=== PATIENT | male | born 2000 | race African-American/Black ===

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

== ENCOUNTER 2018-06-12 11:52 | Emergency (ER) | payer SELFPAY ==
--- NOTE | 2018-06-12 14:34 | Emergency Department Report ---
ED General Adult HPI - General Chief complaint: Upper Respiratory Infection Stated complaint: COUGH Time Seen by Provider: 06/12/18 13:49 Source: patient Mode of arrival: Ambulatory Limitations: No Limitations - History of Present Illness Initial comments: Patient presents to emergency problems to complain of a productive cough for one week. Patient is chest pain, shortness breath, or abdominal pain but does complain of muscle aches. -: Sudden Severity scale (0 -10): 2 Consistency: constant Improves with: none Worsens with: none Associated Symptoms: denies other symptoms Treatments Prior to Arrival: none - Related Data Previous Rx's Medication Instructions Recorded Last Taken Type Albuterol Sulfate [Albuterol 0.63% 0.63 mg IH Q4HR PRN #30 ml 06/12/18 Unknown Rx NEBS] Azithromycin [Zithromax Z-ELIE] 250 mg PO DAILY #6 tablet 06/12/18 Unknown Rx Benzonatate [Tessalon Perles] 100 mg PO Q8HR PRN #20 capsule 06/12/18 Unknown Rx Ibuprofen [Motrin] 800 mg PO Q8HR PRN #30 tablet 06/12/18 Unknown Rx Allergies Allergy/AdvReac Type Severity Reaction Status Date / Time morphine Allergy Unknown Verified 10/24/17 19:40 ED Review of Systems ROS: Stated complaint: COUGH Other details as noted in HPI Comment: All other systems reviewed and negative Constitutional: denies: chills, fever Eyes: denies: eye pain, eye discharge, vision change ENT: denies: ear pain, throat pain Respiratory: denies: cough, shortness of breath, wheezing Cardiovascular: denies: chest pain, palpitations Endocrine: no symptoms reported Gastrointestinal: denies: abdominal pain, nausea, diarrhea Genitourinary: denies: urgency, dysuria Musculoskeletal: denies: back pain, joint swelling, arthralgia Skin: denies: rash, lesions Neurological: denies: headache, weakness, paresthesias Psychiatric: denies: anxiety, depression Hematological/Lymphatic: denies: easy bleeding, easy bruising ED Past Medical Hx - Past Medical History Previous Medical History?: Yes Hx Hypertension: No Hx CVA: No Hx Heart Attack/AMI: No Hx Congestive Heart Failure: No Hx Diabetes: No Hx Deep Vein Thrombosis: No Hx Pulmonary Embolism: No Hx GERD: No Hx Liver Disease: No Hx Renal Disease: No Hx of Cancer: No Hx Sickle Cell Disease: No Hx Arthritis: No Hx Headaches / Migraines: No Hx Seizures: No Hx Kidney Stones: No Hx Psychiatric Treatment: No Hx Asthma: No Hx COPD: No Hx Tuberculosis: No Hx Dementia: No Hx HIV: No Additional medical history: murmur,leaking valve - Surgical History Past Surgical History?: Yes Hx Coronary Stent: No Hx Open Heart Surgery: No Hx Pacemaker: No Hx Internal Defibrillator: No Hx Cholecystectomy: No Hx Appendectomy: No Hx Breast Surgery: No Additional Surgical History: heart surgery - Social History Smoking Status: Never Smoker Substance Use Type: None - Medications Home Medications: Home Medications Medication Instructions Recorded Confirmed Last Taken Type Albuterol Sulfate [Albuterol 0.63% 0.63 mg IH Q4HR PRN #30 ml 06/12/18 Unknown Rx NEBS] Azithromycin [Zithromax Z-ELIE] 250 mg PO DAILY #6 tablet 06/12/18 Unknown Rx Benzonatate [Tessalon Perles] 100 mg PO Q8HR PRN #20 capsule 06/12/18 Unknown Rx Ibuprofen [Motrin] 800 mg PO Q8HR PRN #30 tablet 06/12/18 Unknown Rx ED Physical Exam - General Limitations: No Limitations General appearance: alert, in no apparent distress - Head Head exam: Present: atraumatic, normocephalic - Eye Eye exam: Present: normal appearance, PERRL, EOMI - ENT ENT exam: Present: mucous membranes moist - Neck Neck exam: Present: normal inspection - Respiratory Respiratory exam: Present: normal lung sounds bilaterally, wheezes. Absent: respiratory distress, rales - Cardiovascular Cardiovascular Exam: Present: regular rate, normal rhythm. Absent: systolic murmur, diastolic murmur, rubs, gallop - GI/Abdominal GI/Abdominal exam: Present: soft, normal bowel sounds. Absent: distended, tenderness - Rectal Rectal exam: Present: deferred - Extremities Exam Extremities exam: Present: normal inspection - Back Exam Back exam: Present: normal inspection - Neurological Exam Neurological exam: Present: alert, oriented X3, CN II-XII intact. Absent: motor sensory deficit - Psychiatric Psychiatric exam: Present: normal affect, normal mood - Skin Skin exam: Present: warm, dry, intact, normal color. Absent: rash ED Medical Decision Making - Medical Decision Making Discussed plan of care with patient Critical care attestation.: If time is entered above; I have spent that time in minutes in the direct care of this critically ill patient, excluding procedure time. ED Disposition Clinical Impression: Bronchitis Disposition: DC-01 TO HOME OR SELFCARE Is pt being admited?: No Does the pt Need Aspirin: No Condition: Stable Instructions: Acute Bronchitis (ED) Additional Instructions: return if worse Referrals: TYLER ROJAS MD [Primary Care Provider] - 3-5 Days [facility] [Provider Group] - 3-5 Days [facility] [Provider Group] - 3-5 Days Time of Disposition: 14:33
== END 2018-06-12 14:39 | disposition home or self-care (01) ==
LOC: ED 11:52
DX: J40 Bronchitis, not specified as acute or chronic (principal)
CPT/HCPCS: 99281

== ENCOUNTER 2019-12-25 13:05 | Emergency (ER) | payer MEDICAID ==
[2019-12-25] MEDS ORDERED: dexAMETHasone 20 MG/5 ML VIAL IM ONE (16:22)
[2019-12-25] MEDS ORDERED: ACETAMINOPHEN 325 MG TAB PO ONE (16:22)
--- NOTE | 2019-12-25 16:22 | Event Note ---
ED Screening Note Date of service: 12/25/19 Time: 16:17 ED Screening Note: 19-year-old male who presents the ED complaining of worsening coughing for the past week. Patient also complaining of neck pain and fatigue Mom states patient states that her mom had the coronavirus 2 weeks ago. States that his brother had pneumonia rechecking sats, satting at 92,temperature 99 No use of respiratory muscle This initial assessment/diagnostic orders/clinical plan/treatment(s) is/are subject to change based on patients health status, clinical progression and re- assessment by fellow clinical providers in the ED. Further treatment and workup at subsequent clinical providers discretion. Patient/guardian urged not to elope from the ED as their condition may be serious if not clinically assessed and managed. Initial orders include: Chest x-ray ordered, Steroids ordered, DuoNeb ordered, tylenol
[2019-12-25] MEDS ORDERED: ALBUTEROL 2.5 MG/3 ML NEBU IH ONE (16:23)
--- NOTE | 2019-12-25 17:07 | XRay Report ---
CHEST 1 VIEW INDICATION / CLINICAL INFORMATION: sob. COMPARISON: None available. FINDINGS: SUPPORT DEVICES: None. HEART / MEDIASTINUM: Changes of median sternotomy LUNGS / PLEURA: No significant pulmonary or pleural abnormality.. No pneumothorax. ADDITIONAL FINDINGS: No significant additional findings. IMPRESSION: 1. No acute findings. Signer Name: Jose Mercado MD Signed: 12/25/2019 5:03 PM Workstation Name: [id number]
--- NOTE | 2019-12-25 18:29 | Emergency Department Report ---
Minor Respiratory - HPI Chief Complaint: Upper Respiratory Infection Stated Complaint: COUGHING Time Seen by Provider: 12/25/19 18:28 Duration: 5 Days Severity: mild Minor Respiratory: Yes Cough, No Rhinorrhea, No Sore Throat, No Able to Tolerate Fluids, No Ear Pain, No Sick Contacts, No Hemoptysis, No Chest Pain, No Shortness of Breath, No Fever Other History: 19-year-old male presents to the emergency room for complaining of cough x1 week. He also reports nausea no vomiting. Denies any fever chills no shortness of breath. Patient states that his mom tested positive for COVID. Patient has not tested. Patient does report a history of cardiac surgery had a leaky valve and a has a heart murmur. He reports he had heart surgery but does not know what the procedure was. Patient does not smoke cigarettes. ED Review of Systems ROS: Stated complaint: COUGHING Other details as noted in HPI ED Past Medical Hx - Past Medical History Hx Hypertension: No Hx CVA: No Hx Heart Attack/AMI: No Hx Congestive Heart Failure: No Hx Diabetes: No Hx Deep Vein Thrombosis: No Hx Pulmonary Embolism: No Hx GERD: No Hx Liver Disease: No Hx Renal Disease: No Hx Sickle Cell Disease: No Hx Arthritis: No Hx Headaches / Migraines: No Hx Seizures: No Hx Kidney Stones: No Hx Psychiatric Treatment: No Hx Asthma: No Hx COPD: No Hx Tuberculosis: No Hx Dementia: No Hx HIV: No Additional medical history: murmur,leaking valve - Surgical History Hx Coronary Stent: No Hx Open Heart Surgery: No Hx Pacemaker: No Hx Internal Defibrillator: No Hx Cholecystectomy: No Hx Appendectomy: No Hx Breast Surgery: No Additional Surgical History: heart surgery - Social History Smoking Status: Never Smoker Substance Use Type: None - Medications Home Medications: Home Medications Medication Instructions Recorded Confirmed Last Taken Type Albuterol Sulfate [Albuterol 0.63% 0.63 mg IH Q4HR PRN #30 ml 06/12/18 Unknown Rx NEBS] Azithromycin [Zithromax Z-ELIE] 250 mg PO DAILY #6 tablet 06/12/18 Unknown Rx Benzonatate [Tessalon Perles] 100 mg PO Q8HR PRN #20 capsule 06/12/18 Unknown Rx Ibuprofen [Motrin] 800 mg PO Q8HR PRN #30 tablet 06/12/18 Unknown Rx Minor Respiratory Exam - Exam General: Vital signs noted. No distress. Alert and acting appropriately. HEENT: Yes Moist Mucous Membranes, No Pharyngeal Erythema, No Pharyngeal Exudates, No Rhinorrhea, No Conjuctival Injection, No Frontal Tenderness, No Maxillary Tenderness Neck: Yes Adenopathy, Yes Supple Lungs: Yes Good Air Exchange, No Wheezes, No Ronchi, No Stridor, No Cough, No Labored Respirations, No Retractions, No Use of Accessory Muscles, No Other Abnormal Lung Sounds Heart: Yes Murmur Abdomen: Yes Normal Bowel Sounds, No Tenderness, No Peritoneal Signs Skin: No Rash, No Edema Neurologic: Alert and oriented, no deficits. Musculoskeletal: Unremarkable. ED Course Vital Signs 12/25/19 12/25/19 14:20 16:21 Temperature 98.7 F 99 F Pulse Rate 96 H 96 H Respiratory 16 18 Rate Blood Pressure 122/76 122/76 O2 Sat by Pulse 92 92 Oximetry ED Medical Decision Making - Radiology Data Radiology results: report reviewed Gender: Male Date of : 2000 Referring Provider: FRANCOIS FAIR Organization: [facility] Accession Number: [id number] Requested Date: December 25, 2019 16:19 Report Status: Final Requested Procedure: 1 Procedure Description: XR chest 1V ap Mo dality: XR Findings Reporting MD: Jose Mercado Dictation Time: December 25, 2019 16:03 Mat Linker: Not available Chuck Boner Date: CHEST 1 VIEW INDICATION / CLINICAL INFORMATION: sob. COMPARISON: None available. FINDINGS: SUPPORT DEVICES: None. HEART / MEDIASTINUM: Changes of median sternotomy LUNGS / PLEURA: No significant pulmonary or pleural abnormality.. No pneumothorax. ADDITIONAL FINDINGS: No significant additional findings. IMPRESSION: 1. No acute findings. Signer Name: Jose Mercado MD Signed: 12/25/2019 4:03 PM Workstation Name: [id number] - Medical Decision Making 19-year-old male presents to the emergency room for complaining of cough x1 week. He also reports nausea no vomiting. Denies any fever chills no shortness of breath. Patient states that his mom tested positive for COVID. Patient has not tested. Patient does report a history of cardiac surgery had a leaky valve and a has a heart murmur. He reports he had heart surgery but does not know what the procedure was. Patient does not smoke cigarettes. Discussed case with Dr. Cristin Tejeda. I have walked patient around the emergency room with pulse ox staying steady at 92 to 94% on room air with a heart rate to 106 and will settle back down to 93. Patient reported no shortness of breath or difficulty breathing while doing the walk. Discussed with patient that he needs to follow-up at a [facility] testing facility to get tested. Patient should be quarantine for the next 10 days and to follow-up with his primary care provider. Critical care attestation.: If time is entered above; I have spent that time in minutes in the direct care of this critically ill patient, excluding procedure time. ED Disposition Clinical Impression: Cough Disposition: DC-01 TO HOME OR SELFCARE Is pt being admited?: No Does the pt Need Aspirin: No Condition: Stable Instructions: Acute Cough (ED) Additional Instructions: Please try [id number] Robitussin to see if that helps with your cough. You should return back to the emergency room if you have any shortness of breathing chest pain. It is very important for you to get COVID testing. I have given you a handout of the community resources for testing. Referrals: PRIMARY CARE, [Primary Care Provider] - 3-5 Days [facility] [Outside] - 3-5 Days [facility] [Provider Group] - 3-5 Days Forms: Work/School Release Form(ED)
[2019-12-25 18:46] VITALS: BP 124/89
== END 2019-12-25 18:44 | disposition home or self-care (01) ==
LOC: ED 13:05
DX: R05 Cough (principal); R11.2 Nausea with vomiting, unspecified; Z79.899 Other long term (current) drug therapy; Z88.6 Allergy status to analgesic agent
CPT/HCPCS: 71045; 94640; 96372; 99283; J1100